=== PATIENT | male | born 1950 | race Caucasian/White ===

== ENCOUNTER 2017-06-11 15:05 | Emergency (ER) | payer MEDICARE ==
[~2017-06-11 15:05] MED LIST: ALBU0.086 INH; FORACAP INH; FURO8SOL PO; GABA250S PO; GLUCTAB PO; IPRA0.02 INH; LACT PO; LAMO150 PO; METH500T3 PO; METR-1 PO; MIRTA15 PO; MOME1AER2 INH; MORP30TA3 PO; OMEP20CA5 PO; PRIN10TA PO; SENO8.6T6 PO; SERT100 PO; SIMV20 PO; STOO100C PO; VENTAER INH; [UNRECOGNIZED DRUG - CODE] INH; [UNRECOGNIZED DRUG - CODE] PO
[2017-06-11 15:07] VITALS: BP 167/82; PULSE 110; RESP 20; TEMP 98.2; O2SAT 97
--- NOTE | 2017-06-11 17:30 | PD ---
HPI Chief Complaint: Musculoskeletal Complaint Time Seen by Provider: 17:30 (Kat Espinoza) Time Seen by Provider: 18:24 (Sheila Duron) Travel History International Travel<30 days: No Contact w/Intl Traveler<30days: No Traveled to known affect area: No (Kat Espinoza) History of Present Illness HPI 67-year-old male patient presents emergency department for evaluation of a week and half of back pain. Patient had surgery a week and half ago to fuse his lumbar spine. He had surgery at the [facility] in [place] with a surgeon named Dr. Rosa. Patient states he is in tremendous. Patient is taking hydrocodone [id number]. Patient is on gabapentin. Incision site assessed and there are no signs or symptoms of localized infection. Patient is moving all extremities without problem. Patient requests to have his ting removed while he is here. Patient referred to the surgeon for staple removal. Patient irritated stating his finger to go follow-up with him in [place]. Patient denies having any fevers or chills. Patient states he has started sleeping sleeping due to the pain. Patient's extremities are neurovascularly intact. Patient denies any incontinence of urine or stool. Patient states he is having to take stool softeners due to constipation related to pain medication. (Sheila Duron) FORMERLY [facility], [facility] Past Medical History Blood Disorders: No Heart Rhythm Problems: No Cancer: No Chest Pain: No COPD: Yes Cerebrovascular Accident: No Diabetes: Yes Genitourinary: No Hepatitis: No Hiatal Hernia: No Hypertension: Yes Immune Disorder: No Musculoskeletal: Yes (CHRONIC BACK PAIN) Neurologic: No Reproductive: No Migraines: No Myocardial Infarction: No Sleep Apnea: Yes Thyroid Disease: No Ulcer: No (Kat Espinoza) Past Surgical History Abdominal Surgery: No Appendectomy: No Cardiac Surgery: No Cholecystectomy: No Ear Surgery: No Eye Surgery: Yes (CATARACT) Genitourinary Surgery: No Oral Surgery: No Thoracic Surgery: No (Kat Espinoza) Social History Alcohol Use: Yes (OCC) Tobacco Use: Yes Substance Use: No (Kat Espinoza) Allergies-Medications (Allergen,Severity, Reaction): Coded Allergies: No Known Allergies (Verified Adverse Reaction, Unknown, 06/11/17) Reported Meds & Prescriptions Reported Meds & Active Scripts Active Reported Spiriva Handihaler (Tiotropium Inh) 18 Mcg Cap 18 Mcg INH DAILY 1 capsule = 18 mcg Tylenol Extra Strength (Acetaminophen) 500 Mg Tablet 500 Mg PO Q4HR PRN Senokot (Sennosides) 8.6 Mg Tab 8.6 Mg PO BID Miralax Powder (Polyethylene Glycol 3350 Powder) 17 Gm Powd 17 Gm PO DAILY Mix and dissolve one measuring capful (17 grams) in 4-8OZ water,juice,soda,coffee or tea Dilaudid (Hydromorphone HCl) 2 Mg Tab 2 Mg PO Q4H PRN Guaifenesin 400 Mg Tab 400 Mg PO TID Colace (Docusate Sodium) 100 Mg Capsule 100 Mg PO BID Valium (Diazepam) 5 Mg Tab 5 Mg PO Q8HR PRN Dulcolax DR (Bisacodyl) 5 Mg Tabdr 5 Mg PO BID (Sheila Duron) Review of Systems Except as stated in HPI: all other systems reviewed are Neg (Sheila Duron) Physical Exam Narrative GENERAL: Well-nourished, well-developed 67-year-old male patient in no acute distress. Nontoxic appearing. SKIN: 8CM healing lumbar spine incision with ting intact. No erythema, purulent drainage noted. HEAD: Normocephalic. Atraumatic. EYES: No scleral icterus. No injection or drainage. NECK: Supple, trachea midline. No JVD or lymphadenopathy. CARDIOVASCULAR: Regular rate and rhythm without murmurs, gallops, or rubs. Pedal pulses +2 bilaterally. RESPIRATORY: Breath sounds equal bilaterally. No accessory muscle use. GASTROINTESTINAL: Abdomen soft, non-tender, nondistended. MUSCULOSKELETAL: No obvious deformities, ecchymosis, erythema, cyanosis, or edema. BACK: Lumbar spine tenderness over incision site. No CVA tenderness. (Sheila Duron) Data Data Last Documented VS Vital Signs Date Time Temp Pulse Resp B/P (MAP) Pulse Ox O2 Delivery O2 Flow Rate FiO2 06/11/17 15:07 98.2 110 20 167/82 (110) 97 (Sheila Duron) Orders Orders Ketorolac Inj (Toradol Inj) (06/11/17 18:45) Orphenadrine Inj (Norflex Inj) (06/11/17 18:45) Ed Discharge Order (06/11/17 18:42) (Sheila Duron) [facility] Medical Decision Making Medical Screen Exam Complete: Yes Emergency Medical Condition: Yes Differential Diagnosis Differential diagnoses include but not limited to postop pain, chronic back pain , a medication tolerance, postop infection, Narrative Course Upon assessment patient is noted to have all extremities neurovascularly intact , no signs or symptoms of infection, patient is moving all extremities without problem. Patient is ambulatory with a walker. Patient was hopeful for hospital admission for pain management. Patient is given IM injection of Toradol and Norflex at our facility and instructed to follow-up with his surgeon , Dr. Rosa tomorrow for further pain management. Patient request physical therapy. Patient instructed to follow up with his primary care or surgeon at the [facility] regarding physical therapy placement. Patient is stable for discharge home at this time. (Sheila Duron) Diagnosis Primary Impression: Back pain Qualified Codes: M54.9 - Dorsalgia, unspecified Referrals: Primary Care Physician Patient Instructions: Back Pain (ED), General Instructions Additional Instructions: Please return to emergency department if your symptoms return or worsen. Follow up with Dr. Felton's for further information regarding pain management and staple removal. Take medications as prescribed. Disposition: 01 DISCHARGE HOME Condition: Stable Kat Espinoza Jun 11, 2017 17:30 Sheila Duron Jun 11, 2017 18:42
[2017-06-11] MEDS ORDERED: DILA2TAB4 PO (18:18)
[2017-06-11] MEDS ORDERED: SPIRCAP INH (18:18)
[2017-06-11] MEDS ORDERED: COLA100C5 PO (18:18)
[2017-06-11] MEDS ORDERED: MIRA3350 PO (18:18)
[2017-06-11] MEDS ORDERED: ACET-822 PO (18:18)
[2017-06-11] MEDS ORDERED: DULC5TAB PO (18:18)
[2017-06-11] MEDS ORDERED: GUAI400T32 PO (18:18)
[2017-06-11] MEDS ORDERED: SENO8.6T5 PO (18:18)
[2017-06-11] MEDS ORDERED: DIAZ5 PO (18:18)
[2017-06-11] MEDS ORDERED: KETOROLAC TROMETHAMINE 60 MG/2 ML (IM) VIAL IM ONE (18:45)
[2017-06-11] MEDS ORDERED: ORPHENADRINE INJ 60 MG/2 ML AMP IM ONE (18:45)
== END 2017-06-11 19:29 | disposition home or self-care (01) ==
LOC: NEPK 15:05
DX: M54.9 Dorsalgia, unspecified (principal)
CPT/HCPCS: 96372; 99282; J1885; J2360